=== PATIENT | male | born 1955 | race Caucasian/White ===

== ENCOUNTER 2016-05-27 15:12 | Emergency (ER) | payer MEDICARE, MEDICAID ==
[~2016-05-27] VITALS: Ht 165.1 cm; Wt 70.0 kg
[2016-05-27] MEDS ORDERED: SODIUM CHLORIDE 0.9% 1L BAG IV* STA (15:30)
[2016-05-27 15:36] VITALS: Ht 165.1 cm; Wt 70.0 kg
--- NOTE | 2016-05-27 16:01 | RADRPT ---
PROCEDURE: XR Chest. CLINICAL INDICATION: Shortness of breath. TECHNIQUE: Single frontal view. COMPARISON: None. FINDINGS: There is mild right basilar atelectasis. The lungs are otherwise clear. There is a right-sided [employer] TECHNICIAN shunt catheter. The heart size is normal. There is no pleural effusion. There is no pneumothorax. IMPRESSION: 1. Mild right basilar atelectasis. 2. Right-sided STERILE SUPPLY TECHNICIAN shunt catheter. 3. Otherwise normal chest x-ray. RPTAT: QQ .Yoseph Lynch MD, MD Date Time Electronically viewed and signed by .Yoseph Lynch MD, MD on 05/27/2016 16:00 .R/
[2016-05-27] MEDS ORDERED: ARIP30TA10 PO (16:15)
[2016-05-27] MEDS ORDERED: ASPI81TA3 PO (16:15)
[2016-05-27] MEDS ORDERED: CLON1TAB3 PO (16:17)
[2016-05-27] MEDS ORDERED: DOCU-159 PO (16:21)
[2016-05-27] MEDS ORDERED: DIVA500T7 PO (16:21)
[2016-05-27 16:33] LABS: BASOPHILS % 0.5 % (0.0-2.0); EOSINOPHILS % 0.7 % (0.0-7.0); HEMATOCRIT 33.6 % (42.0-52.0); HEMOGLOBIN 11.2 g/dl (14.0-18.0); LYMPHOCYTES # 1.1 10^3/ul (0.8-2.9); LYMPHOCYTES % 21.7 % (15.0-51.0); MEAN CORPUSCULAR HEMOGLOBIN 31.7 pg (29.0-33.0); MEAN CORPUSCULAR HGB CONC 33.3 g/dl (32.0-37.0); MEAN CORPUSCULAR VOLUME 95.2 fl (82.0-101.0); MEAN PLATELET VOLUME 7.3 fl (7.4-10.4); MONOCYTE # 0.4 10^3/ul (0.3-0.9); NEUTROPHIL # 3.5 10^3/ul (1.6-7.5); NEUTROPHILS % 69.1 % (39.0-77.0); PLATELET COUNT 71 10^3/UL (140-440); RED BLOOD COUNT 3.54 10^6/ul (4.70-6.10); RED CELL DISTRIBUTION WIDTH 15.7 % (11.5-14.5); UNCORRECTED WBC 5.1 10^3/ul (4.8-10.8); WHITE BLOOD COUNT 5.1 10^3/ul (4.8-10.8)
[2016-05-27] MEDS ORDERED: DOXA4TAB3 PO (16:35)
[2016-05-27] MEDS ORDERED: FINA5TAB4 PO (16:36)
[2016-05-27] MEDS ORDERED: FLUO40CA PO (16:39)
[2016-05-27] MEDS ORDERED: FOLI-49 PO (16:40)
[2016-05-27] MEDS ORDERED: BLVX50T PO (16:40)
[2016-05-27] MEDS ORDERED: LEVE-5 PO (16:41)
[2016-05-27] MEDS ORDERED: LEVO88TA3 PO (16:42)
[2016-05-27] MEDS ORDERED: OXYB5TAB22 PO (16:42)
[2016-05-27] MEDS ORDERED: CALC-277 PO (16:43)
[2016-05-27 16:45] LABS: ALBUMIN 2.5 g/dl (3.3-4.9); CHLORIDE 110 mmol/L (97-110)
[2016-05-27 16:46] LABS: INR 1.12; POTASSIUM 4.6 mmol/L (3.5-5.1); PROTIME 14.4 Sec (12.2-14.2); PT RATIO 1.1; SODIUM 144 mmol/L (135-144)
[2016-05-27] MEDS ORDERED: PANT20TA3 PO (16:46)
[2016-05-27 16:47] LABS: PARTIAL THROMBOPLASTIN TIME 48.7 Sec (25.0-35.0)
[2016-05-27] MEDS ORDERED: TEMA30CA PO (16:47)
[2016-05-27] MEDS ORDERED: QUET400T PO (16:47)
[2016-05-27 16:48] LABS: ALKALINE PHOSPHATASE 79 IU/L (42-121); ANION GAP 11 (8-16); ASPARTATE AMINO TRANSFERASE 18 IU/L (15-46); CARBON DIOXIDE 28 mmol/L (21-31); CREATININE 0.91 mg/dl (0.61-1.24)
[2016-05-27] MEDS ORDERED: VITA400C15 PO (16:48)
[2016-05-27 16:49] LABS: ALANINE AMINOTRANSFERASE 22 IU/L (13-69); ALBUMIN/GLOBULIN RATIO 0.78; BLOOD UREA NITROGEN 15 mg/dl (7-20); CALCIUM 8.5 mg/dl (8.4-10.2); GLUCOSE 84 mg/dl (70-220); TOTAL PROTEIN 5.7 g/dl (6.1-8.1)
[2016-05-27 16:52] LABS: CONDITION 1; LH ANALYZER COMMENTS 1
[2016-05-27 17:01] LABS: TROPONIN-I < 0.012 ng/ml (0.00-0.12)
[2016-05-27 18:33] LABS: ADD UMIC NO; URINE BILIRUBIN (Dip) NEGATIVE (NEGATIVE); URINE BLOOD (Dip) NEGATIVE (NEGATIVE); URINE COLOR LT. YELLOW (YELLOW); URINE GLUCOSE (Dip) NEGATIVE (NEGATIVE); URINE KETONES (Dip) NEGATIVE (NEGATIVE); URINE LEUKOCYTE ESTERASE (Dip) NEGATIVE (NEGATIVE); URINE NITRITE (Dip) NEGATIVE (NEGATIVE); URINE TOTAL PROTEIN (Dip) NEGATIVE (NEGATIVE); URINE UROBILINOGEN (Dip) 1.0 E.U./dL (0.1-1.0)
[2016-05-27 20:15] VITALS: TEMP 97.3
[2016-05-27] MEDS ORDERED: LEVO750T25 PO (21:51)
[2016-05-27] MEDS ORDERED: BENZ100C70 PO (21:51)
--- NOTE | 2016-05-27 23:04 | ERD ---
ER Documentation Chief Complaint Date/Time DATE: 05/27/16 TIME: 22:55 Chief Complaint BIBA FOR COUGH,FEVER,LOW BP,LOW O2 SAT.FROM MD'S OFFICE HPI 60-year-old male with chronic debility sent in for reports of fever, low oxygen saturation, and low blood pressure. According to the paramedics the low oxygen saturation was 92%. Fever was not observed by paramedics and then not sure what the level was. Patient's flight operations manager is with him and says that the cough is been going on for 2 weeks. He was diagnosed with pneumonia and hospitalized last month. The patient himself suffers from some dementia and states that she feels well and does not have any fevers. He denies any pain. ROS Patient denies any of the 10 point review of systems however he does suffer from dementia and his history is unreliable.. Medications Home Meds Active Scripts Benzonatate* (Tessalon Perle*) 100 Mg Capsule, 100 MG PO Q8H Y for COUGH, #20 CAP Prov:HELGA WILBURN DO 05/27/16 Levofloxacin* (Levaquin*) 750 Mg Tablet, 750 MG PO DAILY for 5 Days, TAB Prov:HELGA WILBURN DO 05/27/16 Reported Medications Vitamin E* (Vitamin E*) 400 Unit Capsule, 400 UNIT PO EVERY OTHER DAY, CAP 05/27/16 Temazepam* (Temazepam*) 30 Mg Capsule, 30 MG PO HS Y for INSOMNIA, CAP 05/27/16 Quetiapine Fumarate* (Seroquel*) 400 Mg Tablet, 400 MG PO BID, TAB 05/27/16 Pantoprazole* (Pantoprazole*) 20 Mg Tablet.dr, 20 MG PO DAILY, TAB 05/27/16 Calcium Carbonate/Vitamin D3 (OYSTER SHELL 500 MG + VIT D TB) 1 Each Tablet, 1 EACH PO QAM, TAB 05/27/16 Oxybutynin Chloride* (Ditropan* XL) 5 Mg Tabsr, 5 MG PO DAILY, TAB.SA 05/27/16 Levothyroxine Sodium* (Levothyroxine Sodium*) 88 Mcg Tablet, 88 MCG PO BEFORE BREAKFAST, #30 TAB 05/27/16 Levetiracetam* (Keppra*) 500 Mg Tablet, 500 MG PO BID, TAB 05/27/16 Folic Acid* (Folic Acid*) 1 Mg Tablet, 1 MG PO DAILY, TAB 05/27/16 Fluvoxamine Maleate* (Luvox*) 50 Mg Tab, 100 MG PO BID, TAB 05/27/16 Fluoxetine Hcl* (Fluoxetine Hcl*) 40 Mg Capsule, 80 MG PO DAILY, CAP 05/27/16 Finasteride* (Finasteride*) 5 Mg Tablet, 5 MG PO DAILY, TAB 05/27/16 Doxazosin Mesylate* (Doxazosin Mesylate*) 4 Mg Tablet, 4 MG PO HS, TAB 05/27/16 Docusate Sodium* (Docusate Sodium*) 100 Mg Capsule, 200 MG PO BID, #60 CAP 05/27/16 Divalproex Sodium* (Depakote*) 500 Mg Tablet.dr, 1500 MG PO BID, #120 TAB 05/27/16 Clonazepam* (Clonazepam*) 1 Mg Tablet, 1 MG PO BID Y for ANXIETY, TAB 05/27/16 Aspirin* (Aspirin* Chew) 81 Mg Tab.chew, 81 MG PO DAILY, TAB.CHEW 05/27/16 Aripiprazole* (Abilify*) 30 Mg Tablet, 30 MG PO DAILY, #30 TAB 05/27/16 Allergies Allergies: Coded Allergies: Penicillins (Verified Allergy, Unknown, 05/27/16) latex (Verified Allergy, Unknown, 05/27/16) PMhx/Soc Hx Alcohol Use: No Hx Substance Use: No Hx Tobacco Use: No Smoking Status: Never smoker Physical Exam Vitals Vital Signs Date Time Temp Pulse Resp B/P Pulse Ox O2 Delivery O2 Flow Rate FiO2 05/27/16 20:15 97.3 73 23 112/71 95 Room Air 2.0 Nasal Cannula 05/27/16 18:17 57 18 121/82 95 05/27/16 16:22 97.8 52 16 97/82 100 Nasal Cannula 05/27/16 15:51 Nasal Cannula 2 05/27/16 15:36 97.9 58 16 85/67 99 Nasal Cannula 2.0 05/27/16 15:36 97.9 -17.7792 18 154/120 98 97.9 56 14 164/130 96 05/27/16 15:21 97.9 56 18 154/120 98 Physical Exam Const: [] No distress Head: Atraumatic Eyes: Normal Conjunctiva, EOMI, ALEJA ENT: Normal External Ears, Nose and Mouth. Neck: Full range of motion..~ No meningismus. Resp: Clear to auscultation bilaterally Cardio: Regular mild bradycardia no murmurs Abd: Soft, non tender, non distended. Normal bowel sounds Skin: No petechiae or rashes Back: No midline or flank tenderness Ext: No cyanosis, or edema, distal pulses intact all 4 Neur: Awake and alert and oriented 2, no focal deficits Psych: Normal Mood and Affect Result Diagram: 05/27/16 1610 05/27/16 1610 Results 24 hrs Laboratory Tests Test 05/27/16 16:10 05/27/16 18:10 05/27/16 19:30 Activated Partial Thromboplast Time 48.7Sec Alanine Aminotransferase (ALT/SGPT) 22IU/L Albumin 2.5g/dl Albumin/Globulin Ratio 0.78 Alkaline Phosphatase 79IU/L Anion Gap 11 Aspartate Amino Transf (AST/SGOT) 18IU/L Basophils # 0.010^3/ul Basophils % 0.5% Blood Morphology Comment Blood Urea Nitrogen 15mg/dl Calcium Level 8.5mg/dl Carbon Dioxide Level 28mmol/L Chloride Level 110mmol/L Creatinine 0.91mg/dl Direct Bilirubin 0.00mg/dl Eosinophils # 0.010^3/ul Eosinophils % 0.7% Globulin 3.20g/dl Glucose Level 84mg/dl Hematocrit 33.6% Hemoglobin 11.2g/dl INR International Normalized Ratio 1.12 Indirect Bilirubin 0.0mg/dl Lactic Acid Level 0.7mmol/L < 0.5mmol/L Lymphocytes # 1.110^3/ul Lymphocytes % 21.7% Mean Corpuscular Hemoglobin 31.7pg Mean Corpuscular Hemoglobin Concent 33.3g/dl Mean Corpuscular Volume 95.2fl Mean Platelet Volume 7.3fl Monocytes # 0.410^3/ul Monocytes % 8.0% Neutrophils # 3.510^3/ul Neutrophils % 69.1% Nucleated Red Blood Cells # 0.010^3/ul Nucleated Red Blood Cells % 0.0/100WBC Platelet Count 7110^3/UL Potassium Level 4.6mmol/L Prothrombin Time 14.4Sec Prothrombin Time Ratio 1.1 Red Blood Count 3.5410^6/ul Red Cell Distribution Width 15.7% Sodium Level 144mmol/L Total Bilirubin 0.0mg/dl Total Protein 5.7g/dl Troponin I < 0.012ng/ml White Blood Count 5.110^3/ul Urine Bilirubin NEGATIVE Urine Clarity CLEAR Urine Color LT. YELLOW Urine Glucose NEGATIVE% Urine Hemoglobin NEGATIVE Urine Ketones NEGATIVE Urine Leukocyte Esterase NEGATIVE Urine Nitrite NEGATIVE Urine Specific Clements <=1.005 Urine Total Protein NEGATIVE Urine Urobilinogen 1.0 E.U./dL Urine pH 7.0 Current Medications Medications (Trade) Dose Ordered Sig/Chelle Route PRN Reason Start Time Stop Time Status Last Admin Dose Admin Sodium Chloride (NS) 2,170 ml BOLUS OVER 2 HOURS STAT IV* 05/27/16 15:30 05/27/16 15:32 DC 05/27/16 16:17 Procedures/MDM Patient is likely bronchitis. He had no fever observed in the emergency room and according to flight operations manager number giving any antipyretic medication. Septic workup was obtained prior described complaints. Patient does have no signs of dehydration whatsoever has a low lactic acid and himself states that he feels well. Is taking good by mouth in emergency room and repeatedly asked for food and water. He has a normal white count white count, chest x-ray without signs of any infection or acute process, and stable vital signs. He did have a single reading of low blood pressure that could not be repeated on immediate repeat some blood pressure. His vital signs are stable emergency room. As he does have reported cough I believe bronchitis is the most likely diagnosis. Normal to prevent pneumonia believe the patient should be treated within outpatient course of Levaquin. Arabella Dalal giving him Saleemon Aminta for the cough and primary care follow-up in the next 2-3 days. I'll also discussed return precautions with the flight operations manager. Chest x-ray interpretation: No acute process, I see no infiltrates, no pulmonary edema, no widened mediastinum, no fractures EKG interpretation: Sinus bradycardia rate of 53, low voltage, normal axis, no ST or T-wave changes concerning for acute ischemia A monitor interpretation: Sinus bradycardia with no arrhythmia. Departure Diagnosis: Primary Impression: Acute bronchitis Condition: Stable Patient Instructions: Bronchitis, Antiobiotic Treatment (Adult) Additional Instructions: Call your primary care doctor TOMORROW for an appointment during the next 2-3 days.See the doctor sooner or return here if your condition worsens before your appointment time. HELGA WILBURN DO May 27, 2016 23:04
[2016-05-28] VITALS: BP 126/78; PULSE 68; RESP 18
== END 2016-05-28 00:15 | disposition home or self-care (01) ==
LOC: E/R 15:12
DX: J20.9 Acute bronchitis, unspecified (principal); R06.02 Shortness of breath; Z79.82 Long term (current) use of aspirin
CPT/HCPCS: 71010; 80053; 81003; 83605; 84484; 85025; 85610; 85730; 87040; 87086; 99285; J7030; P9612; 93005